=== PATIENT | female | born 1955 | race Caucasian/White ===

== ENCOUNTER 2019-05-15 15:09 | Inpatient (IN) | payer OTHER, MEDICARE ==
[~2019-05-15] VITALS: Ht 172.7 cm; Wt 62.3 kg
[2019-05-15 15:53] LABS: BASOPHILS # (AUTO) 0.03 x10^3/uL (0-0.1); BASOPHILS % (AUTO) 0 % (0-1); EOSINOPHILS # (AUTO) 0.03 x10^3/uL (0-0.4); EOSINOPHILS % (AUTO) 0 % (1-7); LYMPHOCYTES # (AUTO) 1.87 x10^3/uL (1-3.4); LYMPHOCYTES % (AUTO) 24 % (22-44); MD NO; MEAN CORPUSCULAR HEMOGLOBIN 32.1 pg (27.0-34.8); MEAN CORPUSCULAR HGB CONC 34.1 g/dL (32.4-35.8); MEAN CORPUSCULAR VOLUME 94.2 fL (80-100); MEAN PLATELET VOLUME 7.7 fL (7.4-10.4); MONOCYTES # (AUTO) 0.56 x10^3/uL (0.2-0.8); MONOCYTES % (AUTO) 7 % (2-9); NEUTROPHILS # (AUTO) 5.28 x10^3/uL (1.8-6.8); NEUTROPHILS % (AUTO) 68 % (42-75); PLATELET COUNT 193 x10^3/uL (130-400); RED BLOOD COUNT 4.62 x10^6/uL (3.82-5.3); RED CELL DISTRIBUTION WIDTH 13.9 % (9.6-15.2)
[2019-05-15 16:03] LABS: ALBUMIN 3.9 g/dL (3.4-5.0); ANION GAP 6 mmol/L (5-15); CALCIUM 8.9 mg/dL (8.5-10.1); CHLORIDE 103 mmol/L (98-107); CREATININE 0.73 mg/dL (0.55-1.02)
[2019-05-15 16:07] LABS: TROPONIN I < 0.015 ng/mL (0.000-0.045)
--- NOTE | 2019-05-15 16:15 | NUR ---
PT TO ROOM FROM LOBBY AT THIS TIME.
--- NOTE | 2019-05-15 16:50 | NUR ---
BREAK RN: THIS IS A 64 YEAR OLD FEMALE WHO HAD CHEHEST PAIN WITH PALPITATIONS, DIZZY FOR 45 MINUTES. STATES USED HER PULSE OX AND HR 200 AT HOME. PT STATES THAT SHE FELT THE SAME WAY A COUPLE WEEKS AGO. IS A [employer] AND IS AT [employer]. PT PLACED ON LIVING COACH, SINUS TACY, CONTINOUS SP02 AND CYCLE VS
--- NOTE | 2019-05-15 17:13 | NUR ---
AMBULATORY TO AND FROM RESTROOM WITH STEADY GAIT WITH NO STAFF ASSISTANCE.
[2019-05-15 17:39] LABS: FREE T4 (FREE THYROXINE) 1.84 ng/dL (0.76-1.46)
[2019-05-15] MEDS ORDERED: ACETAMINOPHEN 325 MG TABLET PO PRN (18:00)
[2019-05-15] MEDS ORDERED: ONDANSETRON ODT 4 MG PO PRN (18:00)
[2019-05-15] MEDS ORDERED: POLYETHYLENE GLYCOL 17 GM PACKET PO PRN (18:00)
[2019-05-15] MEDS ORDERED: POTASSIUM CHLORIDE 20 MEQ TAB.ER.PRT PO ONE (18:00)
[2019-05-15] MEDS ORDERED: BISACODYL 10 MG SUPP PR PRN (18:00)
--- NOTE | 2019-05-15 18:09 | NUR ---
PIV ESTABLISHED AND MED REC COMPLETED. [facility] AT BEDSIDE.
[2019-05-15] MEDS ORDERED: LEVO125T PO (18:14)
[2019-05-15] MEDS ORDERED: DIAZ5TAB PO ×2 (18:14)
[2019-05-15] MEDS ORDERED: DEXL60CA2 PO ×2 (18:14→21:57)
[2019-05-15] MEDS ORDERED: ZANTAC (18:14)
[2019-05-15] MEDS: NICOTINE 7 MG/24 HR PATCH.TD24 TD SCH ×2 (18:15→23:00)
[2019-05-15] MEDS ORDERED: POTASSIUM CHLORIDE 20 MEQ TAB.ER.PRT ONE (18:16)
--- NOTE | 2019-05-15 18:18 | NUR ---
PT TO XRAY.PT MEDICATED PER ORDERS.
[2019-05-15] MEDS ORDERED: OMNIPAQUE 350 MG/ML, 150 ML BOTTLE ONE (18:43)
--- NOTE | 2019-05-15 18:52 | NUR ---
REPORT CALLED TO CHRIS SALGUERO. PT TO TRANSFER TO INPATIENT STATUS WITH ALL BELONGINGS.
[2019-05-15 20:05] VITALS: BP 116/72
[2019-05-15] MEDS ORDERED: PANTOPROZOLE 40MG TABLET PO SCH (21:00)
[2019-05-15] MEDS ORDERED: DIAZEPAM 5 MG TABLET PO PRN (22:00)
[2019-05-15] MEDS: SODIUM CHLORIDE FLUSH 10ML SYR IVF SCH (22:26)
[2019-05-16 03:17] VITALS: BP 120/70
[2019-05-16 05:26] LABS: ANION GAP 3 mmol/L (5-15); CALCIUM 8.7 mg/dL (8.5-10.1); CHLORIDE 111 mmol/L (98-107)
[2019-05-16 05:31] LABS: CREATININE 0.56 mg/dL (0.55-1.02)
[2019-05-16 05:32] LABS: TROPONIN I < 0.015 ng/mL (0.000-0.045)
[2019-05-16] MEDS ORDERED: LEVOTHYROXINE 112 MCG TABLET PO SCH (06:00)
[2019-05-16 07:02] VITALS: BP 109/63
[2019-05-16] MEDS ORDERED: MAGNESIUM SULFATE PMX 2GM/50ML 50 ML IV ONE (08:00)
[2019-05-16] MEDS: SODIUM CHLORIDE FLUSH 10ML SYR IVF SCH (08:58)
[2019-05-16] MEDS ORDERED: SENNA/DOCUSATE TABLET PO SCH (09:00)
== END 2019-05-16 09:19 | disposition left against medical advice (07) | DRG 313 ==
LOC: ED 17:45 → EDIP 17:55 → ED 19:42 → 5SO 20:01
PROVIDERS: ADMIT Family Medicine; ATTEND Family Medicine
DX: R07.89 Other chest pain (principal); R00.2 Palpitations; E03.9 Hypothyroidism, unspecified; E87.6 Hypokalemia; F17.210 Nicotine dependence, cigarettes, uncomplicated; J44.9 Chronic obstructive pulmonary disease, unspecified; K21.9 Gastro-esophageal reflux disease without esophagitis; K22.70 Barrett's esophagus without dysplasia; K44.9 Diaphragmatic hernia without obstruction or gangrene; Z80.3 Family history of malignant neoplasm of breast; Z90.710 Acquired absence of both cervix and uterus; Z88.8 Allergy status to other drugs, medicaments and biological substances; Z53.29 Procedure and treatment not carried out because of patient's decision for other reasons
CPT/HCPCS: 36415; 71046; 74220; 80048; 82040; 83735; 84439; 84443; 84481; 84484; 85025; 93005; 93306; 99285; G0378; Q9967

== ENCOUNTER → 2020-01-19 | Outpatient (CLI) | payer OTHER ==
[~2020-01-19] MED LIST: DEXL60CA2 PO; DIAZ5TAB PO; LEVO125T PO; ZANTAC
== END | disposition home or self-care (01) ==
LOC: WOUND 13:02
PROVIDERS: ATTEND Family Medicine
DX: S51.812A Laceration without foreign body of left forearm, initial encounter (principal); S40.812A Abrasion of left upper arm, initial encounter; E03.8 Other specified hypothyroidism; L40.9 Psoriasis, unspecified; K21.9 Gastro-esophageal reflux disease without esophagitis; F17.290 Nicotine dependence, other tobacco product, uncomplicated; W23.0XXA Caught, crushed, jammed, or pinched between moving objects, initial encounter; Y93.89 Activity, other specified; Y92.89 Other specified places as the place of occurrence of the external cause; Y99.8 Other external cause status
CPT/HCPCS: 97597; 99214

== ENCOUNTER → 2020-01-26 | Outpatient (CLI) | payer OTHER | END | disposition home or self-care (01) | LOC: WOUND 12:34 | PROVIDERS: ATTEND Family Medicine | DX: S51.812D Laceration without foreign body of left forearm, subsequent encounter (principal); S40.812D Abrasion of left upper arm, subsequent encounter; E03.8 Other specified hypothyroidism; L40.9 Psoriasis, unspecified; K21.9 Gastro-esophageal reflux disease without esophagitis; F17.290 Nicotine dependence, other tobacco product, uncomplicated; W23.0XXD Caught, crushed, jammed, or pinched between moving objects, subsequent encounter | CPT/HCPCS: 99213 ==

== ENCOUNTER 2020-02-02 13:09 | Outpatient (CLI) | payer OTHER | END 2020-02-02 23:59 | disposition home or self-care (01) | LOC: WOUND 13:09 | PROVIDERS: ATTEND Family Medicine | DX: S40.811D Abrasion of right upper arm, subsequent encounter (principal); S40.812D Abrasion of left upper arm, subsequent encounter; E03.8 Other specified hypothyroidism; K21.9 Gastro-esophageal reflux disease without esophagitis; E03.9 Hypothyroidism, unspecified; L40.9 Psoriasis, unspecified; F17.200 Nicotine dependence, unspecified, uncomplicated; W23.0XXD Caught, crushed, jammed, or pinched between moving objects, subsequent encounter | CPT/HCPCS: 99213 ==